=== PATIENT | female | born 2000 | race Caucasian/White ===

== ENCOUNTER 2021-08-19 22:18 | Emergency (ER) | payer OTHER, SELFPAY ==
--- NOTE | ~2021-08-19 | XR_ITS ---
XR chest 2V DATE: 08/19/2021 22:59 INDICATION: Supraventricular tachycardia. Hypertension. Situs inversus. TECHNIQUE: PA and lateral views COMPARISON: None FINDINGS: There is a left-sided aortic arch and apparent dextrocardia. Normal abdominal situs is note d. The liver is right-sided, the stomach on the left. No pulmonary infiltrate or consolidation, pleural effusion or pulmonary vascular congestion or pneumo thorax. Mild thoracic and lumbar scoliosis. IMPRESSION: Dextrocardia No active pulmonary disease Reviewed, dictated and finalized at location A.
--- NOTE | 2021-08-19 22:24 | ECG_ITS ---
Measurements Intervals [place] Rate: 240 P: HI: 0 QRS: 83 QRSD: 90 T: 160 QT: 180 QTc: 360 Interpretive Statements SUPRAVENTRICULAR TACHYCARDIA HIGH LATERAL INFARCT, AGE INDETERMINATE ST-T WAVE ABNORMALITY IN INF/LAT LEADS- CONSIDER ISCHEMIA OR RATE RELATED BASELINE WANDER- II, III, V6 ABNORMAL ECG Electronically Signed On 08-20-2021 7:03:51 CDT by Brent Villavicencio D.O.
[2021-08-19 22:25] VITALS: PULSE 240; RESP 20; TEMP 36.6; O2SAT 100
[2021-08-19] MEDS: dilTIAZem HCl INJ 25 MG/5 ML VIAL 15 MG IV PUSH (22:28)
[2021-08-19 22:32] VITALS: BP 130/80; PULSE 101; RESP 18; O2SAT 100
[2021-08-19 22:39] LABS: Basophils Percent Auto 0.3 % (0.2-1.2); Eosinophils Percent Auto 0.5 % (0-4.4); Hematocrit 42.1 % (37.0-47.0); Hemoglobin 14.1 g/dL (12.0-15.0); Lymphocytes Absolute Auto 3.39 K/mm3 (0.9-3.2); Lymphocytes Percent Auto 43.7 % (18.3-44.2); Mean Corpuscular HGB Conc 33.5 g/dl (32-36); Mean Corpuscular Hemoglobin 31.8 pg (26-34); Mean Corpuscular Volume 94.8 fl (80-100); Mean Platelet Volume 10.3 fl (7.4-10.4); Monocytes Absolute Auto 0.6 K/mm3 (0.1-0.6); Monocytes Percent Auto 8.1 % (2.6-8.5); Neutrophils Absolute Auto 3.7 K/mm3 (1.3-6.7); Neutrophils Percent Auto 47.4 % (45.5-73.1); Platelet Count Result 274 k/mm3 (150-375); Red Blood Count 4.44 M/mm3 (4.2-5.4); Red Cell Distribution Width 12.2 % (11.5-14.5); White Blood Count 7.8 K/mm3 (4.5-10.0)
[2021-08-19 22:49] LABS: Anion Gap 12 mmol/L (8-16); Blood Urea Nitrogen 25 mg/dL (7-17); Carbon Dioxide 18 mmol/L (22-30); Chloride 108 mmol/L (98-107); Estimated CRCL calculation 77 ml/min; Estimated Glomerular Filt Rate > 60; Glucose 104 mg/dL (65-110); Potassium 4.1 mmol/L (3.4-5.0); Sodium 138 mmol/L (137-145)
[2021-08-19 22:55] LABS: INR 1.1; Prothrombin Time 13.3 Seconds (11.1-14.7)
[2021-08-19 22:56] LABS: Partial Thromboplastin Time 29.3 SECONDS (22.3-36.8)
[2021-08-19 22:58] LABS: NT Pro B Type Natriuretic Pept 94 pg/mL (5-100)
[2021-08-19 23:26] VITALS: BP 106/68; PULSE 92; RESP 18; O2SAT 99
[2021-08-19 23:45] VITALS: BP 106/71; PULSE 96; RESP 16; O2SAT 100
--- NOTE | 2021-08-20 00:03 | ED.ARRPALP ---
HPI - Arrhythmia/Palpitations General Chief Complaint: Arrhythmia/Palpitations Stated Complaint: tachycardic Time Seen by Provider: 08/19/21 22:20 History of Present Illness HPI narrative: Patient is a 21-year-old female with history of SVT who presents ER with heart palpitations. Began 30 minutes prior to arrival. Feels chest tightness. No dizziness or shortness of breath. Has had prescriptions for metoprolol but has not taken it in a year. Has not seen a hardware design engineer in a year. Has not had an event in a year. She is currently in town from [place] where she lives visiting family. Denies any excessive caffeine intake. Reports she had 1 alcoholic beverage this evening. No long distance travel other than a flight from [place]. No prolonged immobilization. No calf pain. No hemoptysis. Of note patient reports dextrocardia. Also she reports that SVT does not respond to adenosine but responds quite well to diltiazem Related Data Allergies Allergy/AdvReac Type Severity Reaction Status Date / Time No Known Allergies Allergy Verified 08/19/21 22:27 Review of Systems Review of Systems: All systems reviewed & are unremarkable except as noted in HPI and below Constitutional: Constitutional: Denies chills, Denies fatigue and Denies fever(s) Cardiovascular: Cardiovascular: Reports chest pain (Tightness), Reports rapid heart rate and Denies radiating jaw, neck or arm pain Respiratory: Respiratory: Denies chest congestion and Denies dyspnea Gastrointestinal: Gastrointestinal: Denies abdominal pain, Denies nausea and Denies vomiting Musculoskeletal: Musculoskeletal: Denies myalgias, Denies arthralgias and Denies joint swelling Neurologic: Denies dizziness and Denies syncope PMFSH Past Medical History Medical History (Updated 08/20/21 @ 00:10 by Viraj Santiago MD) Supraventricular tachycardia Surgical History Surgical History (Updated 08/20/21 @ 00:10 by Viraj Santiago MD) No pertinent past surgical history Social History Social History (Updated 08/20/21 @ 00:10 by Viraj Santiago MD) Alcohol intake: current Exam Narrative: GENERAL: Well-appearing, well-nourished, and in no acute distress. HEAD: Normocephalic, atraumatic. NECK: Supple. CHEST: Clear to auscultation. No respiratory distress. HEART: Tachycardic and regular. Normal peripheral pulses. ABDOMEN: Soft, nontender, nondistended. EXTREMITIES: Normal range of motion. No edema. SKIN: Warm, dry, no rash. NEURO: Alert and oriented x3. PSYCH: Normal mood and affect. Course Course Emergency Course: Patient resting comfortably after diltiazem patient is a normal sinus rhythm. No chest pain or shortness of breath or dizziness. Will prescribe metoprolol for home though she is hesitant to take it as she does not like how it feels. Educated on return precautions. Vital Signs Vital signs: Vital Signs Temperature 98 F 08/19/21 22:25 Pulse Rate 240 H 08/19/21 22:25 Respiratory Rate 20 08/19/21 22:25 Pulse Oximetry 100 08/19/21 22:25 Oxygen Delivery Room Air 08/19/21 22:25 Temperature 98 F 08/19/21 22:25 Pulse Rate 96 08/19/21 23:45 Respiratory Rate 16 08/19/21 23:45 Blood Pressure 106/71 08/19/21 23:45 Pulse Oximetry 100 08/19/21 23:45 Oxygen Delivery Room Air 08/19/21 22:25 MDM - Arrhythmia/Palpitations Lab Data Result diagrams: 08/19/21 22:34 08/19/21 22:34 Labs: Lab Results 08/19/21 08/19/21 08/19/21 Range/Units 22:34 22:34 22:34 WBC 7.8 (4.5-10.0) K/mm3 RBC 4.44 (4.2-5.4) M/mm3 Hgb 14.1 (12.0-15.0) g/dL Hct 42.1 (37.0-47.0) % MCV 94.8 (80-100) fl MCH 31.8 (26-34) pg MCHC 33.5 (32-36) g/dl RDW 12.2 (11.5-14.5) % Plt Count 274 (150-375) k/mm3 MPV 10.3 (7.4-10.4) fl Immature Gran % (Auto) 0.0 (0-0.5) % Neut % (Auto) 47.4 (45.5-73.1) % Lymph % (Auto) 43.7 (18.3-44.2) % [facility] % (Auto)
[2021-08-20 00:32] VITALS: BP 106/63; PULSE 87; RESP 16; O2SAT 99
== END 2021-08-20 00:33 | disposition home or self-care (01) ==
PROVIDERS: Emergency Provider Emergency Medicine
DX: I47.1 Supraventricular tachycardia (principal)
CPT/HCPCS: 36415; 71046; 80048; 83735; 83880; 85025; 85610; 85730; 93005; 96374; 99284